=== PATIENT | male | born 1995 ===

== ENCOUNTER 2018-08-16 11:30 | Inpatient (IN) ==
[2018-08-16] MEDS ORDERED: Diphtheria/Tetanus/Pertussis Vaccine Inj 0.5 ML Syringe IM ONE (11:40)
[2018-08-16 11:57] LABS: Baso # (Auto) 0.1 th/mm3 (0.0-0.2); Baso % (Auto) 0.5 % (0.0-2.0); Eos # (Auto) 0.2 th/mm3 (0.0-0.4); Eos % (Auto) 2.1 % (0.0-4.0); Hematocrit 40.7 % (39.0-51.0); Hemoglobin 13.5 gm/dL (13.0-17.0); Lymph # (Auto) 1.9 th/mm3 (1.0-4.8); Lymph % (Auto) 18.7 % (9.0-44.0); Mean Corpuscular HGB Conc 33.1 % (32.0-36.0); Mean Corpuscular Hemoglobin 28.1 pg (27.0-34.0); Mean Corpuscular Volume 85.1 fL (80.0-100.0); Mean Platelet Volume 9.6 fL (7.0-11.0); Mono # (Auto) 0.6 th/mm3 (0.0-0.9); Mono % (Auto) 6.4 % (0.0-8.0); Neut # (Auto) 7.2 th/mm3 (1.8-7.7); Neut % (Auto) 72.3 % (16.0-70.0); Platelet Count 191 th/mm3 (150-450); Red Blood Count 4.79 mil/mm3 (4.50-5.90); Red Cell Distribution Width 14.1 % (11.6-17.2)
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
[2018-08-16] MEDS ORDERED: Morphine Inj 4 MG/ML Vial ONE ×2 (12:06→12:28)
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
[2018-08-16 12:12] LABS: Activated Partial Thrombo Time 25.2 sec (24.3-30.1); Prothrombin Time 10.4 sec (9.8-11.6)
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
[2018-08-16] MEDS ORDERED: Gelatin Size 100 Topical Foam ONE (12:50)
[2018-08-16] MEDS ORDERED: Thrombin Topical Soln 5,000 UNIT Vial TOPICAL ONE (12:50)
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
[2018-08-16] MEDS ORDERED: ceFAZolin 2 GM Premix Inj 2 GM/50 ML PIGGYBACK IV.SIG ONE (13:01)
[2018-08-16] MEDS ORDERED: ceFAZolin 1 GM Premix Inj 1 GM/50 ML FROZ.PIGGY IV.SIG ONE (13:01)
[2018-08-16] MEDS ORDERED: Normosol-R pH 7.4 Inj 2,000 ML IV.CONT ONE (13:25)
[2018-08-16] MEDS ORDERED: Phenylephrine/NS 1000 MCG/10ML Syringe IV.PUSH ONE (13:25)
[2018-08-16] MEDS ORDERED: Succinylcholine Inj 100 MG/5 ML Syringe IV.PUSH ONE (13:25)
[2018-08-16] MEDS ORDERED: Lidocaine PF 1% Inj 5 ML Syringe OTHER ONE (13:25)
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
[2018-08-16] MEDS ORDERED: Propofol Inj 500 MG/50 ML Vial ONE ×5 (13:46→18:28)
[2018-08-16] MEDS ORDERED: Ketamine Inj 500 MG/10 ML Vial ONE (13:46)
[2018-08-16] MEDS ORDERED: Lidocaine 1%/Epinephrine 1:100,000 Inj 30 ML Vial ONE (14:00)
[2018-08-16] MEDS ORDERED: Morphine Sulfate Inj 2 MG/ML Vial IV.PUSH PRN (14:00)
[2018-08-16] MEDS ORDERED: fentaNYL Citrate Inj 250 MCG/5 ML Ampul ONE ×2 (15:42→15:43)
[2018-08-16] MEDS ORDERED: Bisacodyl 10 MG Supp RECTAL PRN (18:02)
[2018-08-16] MEDS ORDERED: Post-op Orders (for Pharmacy) OTHER ONE (18:02)
[2018-08-16] MEDS ORDERED: Naloxone Inj 0.4 MG/ML Vial IV.PUSH PRN (18:02)
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
[2018-08-16] MEDS: fentaNYL 10 mcg/mL Premix Drip 2,500 MCG/250 ML BAG IV.SIG PRN (18:30)
--- NOTE | 2018-08-16 18:37 | P.OP ---
Preoperative Diagnosis: C6/7 fracture dislocation (jumped facet Left C6/7) Postoperative Diagnosis: same Date of procedure: 08/16/18 Procedure: Cervical traction and reduction of fracture with 60 lbs Anterior cervical discectomy at C6/7 and fixation from C5 to T1 Use of operative microscope Use of Iso-C 3D fluoro Precision simplicity plate: C5: 16mm variable, C6: 14mm variable, C7: 14mm fixed, T1: 16mm variable Size 10mm VG2 lordotic allograft at C6/7 Indications: This is a 22 yoM with a C6 complete spinal cord injury and a left C6/7 fracture dislocation. Reduction and fixation are indicated. Description of Operation: Patient was brought to [place] [id number] and the procedure done under general anethesia with neuromonitoring. He was brought to the operating table in a collar and cervical traction was applied through a crown halo with 60lbs. Difficulty visualizing C6/7 due to body habitus required Iso-C. C6/7 was visualized and not reduced. Neuromonitoring with poor baselines prior to traction, stronger in the upper extremities but inconsistent and mostly absent in the lowers, consistent with his exam. Paralytic was given and manual traction applied. Neuromonitoring remained unchanged throughout the case, with perhaps slight improvement in right arm by the end. A physical pop was identified coincident with presumed reduction of the fracture, confirmed by IsoC. Decision made to proceed with anterior fixation given body habitus and difficulty with imaging and reduction by traction. Right anterior neck was prepped and draped in the usual sterile fashion. Incision taken through platysma and an avascular plane dissected to the anterior cervical spine. Fluoroscopy confirmed C4 level and C5 to T1 were then dissected free of longus coli. Clarita retractors used for exposure. Microscope brought into the field. The ALL at C6/7 was opened and obviously disrupted disc encountered. This was removed and endplates prepared. Size 10 VG2 graft was placed and Roby pin distraction was reversed. Size 69mm plate was used at multiple points of fixation given large body habitus, using fixed screws at C7 (14mm), variable screws at T1 (16mm) and C5 (16mm) and C6 14mm variable screws. Fluoroscopy was used for final pictures but difficulty to visualize given body habitus. 7mm flat marlon drain was used after irrigating with gentamicin irrigation and achieving hemostasis with floseal. Platysma closed with interrupted 3-0 Vicryl and monocril used for skin followed by dermabond. Drain secured and patient placed back in collar, taken to ICU in stable condition, traction discontinued. EBL 50cc. Surgeon: Ramiro Baker MD
[2018-08-16] MEDS ORDERED: fentaNYL Citrate Inj 100 MCG/2 ML Ampul ONE (18:40)
--- NOTE | 2018-08-16 18:42 | XR ---
EXAM DATE: 08/16/2018 12:00 AM EDT AGE/SEX: 89 years / Male INDICATIONS: Cervical fusion of C5-T1 done in the operating room. CLINICAL DATA: This is the patient's initial encounter. Patient reports that signs and symptoms have been present for 1 day and indicates a pain score of Nonresponsive. MEDICAL/SURGICAL HISTORY: Non-responsive. Non-responsive. COMPARISON: No prior exams available for comparison. FINDINGS: Only AP views available. There is fusion across the lower cervical and upper thoracic spine. Drain pr esent. Alignment not able to be visualized on the lateral. CONCLUSION: Postoperative fusion identified. Only AP view is present with plate and screw overlying lower cervica l and upper thoracic spine, C5-T1. Electronically signed by: Yakov Pablo MD 08/16/2018 6:41 PM EDT
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
[2018-08-16] MEDS: Sod Chloride 0.9% Inj 1,000 ML IV.CONT SCH ×2 (18:58→22:02)
[2018-08-16] MEDS: Propofol 1000 mg/100 ml Inj 1,000 MG/100 ML BOTTLE IV.CONT PRN ×2 (19:36→22:02)
[2018-08-16] MEDS: Senna/Docusate Sodium 8.6/50 MG Tablet PO SCH (20:44)
[2018-08-16] MEDS ORDERED: Docusate Sodium 100 MG Capsule PO SCH (21:00)
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
[2018-08-17] MEDS: Propofol 1000 mg/100 ml Inj 1,000 MG/100 ML BOTTLE IV.CONT PRN ×4 (00:20→07:49)
[2018-08-17] MEDS: Chlorhexidine Gluconate 2% 1 Pack (2 Cloths) TOPICAL SCH (03:55)
[2018-08-17] MEDS ORDERED: Chlorhexidine Gluconate 2% 1 Pack (2 Cloths) TOPICAL PRN (04:00)
--- NOTE | 2018-08-17 04:12 | XR ---
EXAM DATE: 08/17/2018 6:00 AM EDT AGE/SEX: 22 years / Male INDICATIONS: Shortness of breath CLINICAL DATA: This is the patient's subsequent encounter. Patient reports that signs and symptoms h ave been present for 2 days and indicates a pain score of Nonresponsive. MEDICAL/SURGICAL HISTORY: Non-responsive. Non-responsive. COMPARISON: [facility], CHEST 1V SINGLE AP, 08/16/2018. . FINDINGS: ET tube and NG tube are well placed. The heart size is normal. This increased density at the medial r ight upper lung and at the right base. The left lung is clear. CONCLUSION: Right superior medial and basilar suspected areas of atelectasis or consolidation. Electronically signed by: Romeo Orozco MD 08/17/2018 4:11 AM EDT
[2018-08-17] MEDS: Sod Chloride 0.9% Inj 1,000 ML IV.CONT SCH ×3 (05:15→16:06)
[2018-08-17 05:51] LABS: ABG Base Excess -0.4 mmol/L (-2-2); ABG PCO2 33 mmHg (38-42); ABG PO2 141 mmHg (61-120)
[2018-08-17 05:51] LABS: Baso # (Auto) 0.1 th/mm3 (0.0-0.2); Baso % (Auto) 0.4 % (0.0-2.0); Eos # (Auto) 0.1 th/mm3 (0.0-0.4); Eos % (Auto) 0.7 % (0.0-4.0); Hematocrit 37.3 % (39.0-51.0); Lymph # (Auto) 2.3 th/mm3 (1.0-4.8); Mean Corpuscular HGB Conc 32.1 % (32.0-36.0); Mean Corpuscular Hemoglobin 27.3 pg (27.0-34.0); Mean Corpuscular Volume 84.9 fL (80.0-100.0); Mean Platelet Volume 9.9 fL (7.0-11.0); Mono # (Auto) 1.1 th/mm3 (0.0-0.9); Mono % (Auto) 8.2 % (0.0-8.0); Neut # (Auto) 9.5 th/mm3 (1.8-7.7); Neut % (Auto) 72.7 % (16.0-70.0); Platelet Count 230 th/mm3 (150-450); Red Blood Count 4.39 mil/mm3 (4.50-5.90); Red Cell Distribution Width 14.9 % (11.6-17.2)
[2018-08-17 06:13] LABS: Albumin 3.2 g/dL (3.4-5.0); Anion Gap 6 meq/L (5-15); Aspartate Aminotransferase 27 U/L (15-37); Blood Urea Nitrogen 9 mg/dL (7-18); Calcium 8.1 mg/dL (8.5-10.1); Chloride 113 meq/L (98-107); Glomerular Filtration Rate Greater Than 89 mL/min (>89); Glucose,Random 99 mg/dL (74-106); Potassium 3.5 meq/L (3.5-5.1); Sodium 145 meq/L (136-145)
[2018-08-17] MEDS ORDERED: Sodium Chloride 0.9% 2 ML Flush PRN IV.FLUSH (06:13)
[2018-08-17 06:14] LABS: Alanine Aminotransferase 29 U/L (12-78)
[2018-08-17 06:16] LABS: Alkaline Phosphatase 68 U/L (45-117); Total Protein 6.7 g/dL (6.4-8.2)
[2018-08-17] MEDS: Chlorhexidine 0.12% Oral Kit 15 ML UDC OROPHARYNG SCH ×2 (07:51→20:10)
[2018-08-17] MEDS: Senna/Docusate Sodium 8.6/50 MG Tablet PO SCH ×2 (08:28→20:09)
[2018-08-17] MEDS: Sodium Chloride 0.9% 2 ML Flush BID IV.FLUSH SCH ×2 (08:31→20:10)
[2018-08-17] MEDS ORDERED: Magnesium Sulfate Inj 2 GM in Sodium Chlor 0.9% Inj 96 ML IV.SIG PRN (09:10)
[2018-08-17] MEDS ORDERED: Magnesium Oxide 400 MG Tablet PO PRN (09:10)
[2018-08-17] MEDS ORDERED: Potassium Phosphate 500 MG Soluble Tablet PO PRN ×2 (09:10)
[2018-08-17] MEDS ORDERED: Magnesium Sulfate Inj 4 GM in Sodium Chlor 0.9% Inj 92 ML IV.SIG PRN (09:10)
[2018-08-17] MEDS ORDERED: Sodium Phosphate Inj 30 MMOL in Sodium Chlor 0.9% Inj 250 ML IV.SIG PRN (09:10)
[2018-08-17] MEDS ORDERED: Potassium Chlor 20 mEq Premix 20 MEQ/100 ML PIGGYBACK IV.SIG PRN ×2 (09:10)
[2018-08-17] MEDS ORDERED: Potassium Chloride 25 MEQ Effervescent Tablet PO PRN (09:10)
[2018-08-17] MEDS ORDERED: Potassium Phosphate Inj 30 MMOL in Sodium Chlor 0.9% Inj 250 ML IV.SIG PRN (09:10)
[2018-08-17] MEDS ORDERED: Potassium Chlor 40 mEq Premix 40 MEQ/100 ML PIGGYBACK IV.SIG PRN ×2 (09:10)
[2018-08-17] MEDS: fentaNYL 10 mcg/mL Premix Drip 2,500 MCG/250 ML BAG IV.SIG PRN (09:41)
[2018-08-17] MEDS: Midazolam 50 MG/50 ML Inj 50 MG/50 ML BAG IV.CONT PRN ×3 (09:45→18:56)
--- NOTE | 2018-08-17 11:08 | P.PNNS ---
Subjective Interval history: did well overnight. awake following commands through biceps, weak movement of hands. no sensation below nipples. exam stable Physical Exam Vital signs: Vital Signs 08/16/18 12:00 08/16/18 18:17 08/16/18 18:23 Temperature 98.2 F Pulse Rate 95 H Respiratory Rate 25 H 16 Pulse Oximetry 97 96 99 08/16/18 19:00 08/16/18 19:08 08/16/18 20:00 Temperature 98.2 F 98.1 F Pulse Rate 79 79 Respiratory Rate 16 16 16 Pulse Oximetry 96 95 08/16/18 20:07 08/16/18 23:44 08/17/18 00:00 Temperature 98 F Pulse Rate 64 Respiratory Rate 16 16 16 Pulse Oximetry 95 100 100 08/17/18 03:25 08/17/18 04:00 08/17/18 07:54 Temperature 98.4 F Pulse Rate 67 54 L Respiratory Rate 16 16 16 Pulse Oximetry 100 100 98 08/17/18 10:50 Temperature Pulse Rate Respiratory Rate 20 Pulse Oximetry 99 Intake & Output 08/16/18 08/17/18 08/17/18 18:59 06:59 18:59 Intake Total 2100 / 2100 2460 / 2460 350 / 350 Output Total 800 / 800 3945 / 3945 Balance 1300 / 1300 -1485 / -1485 350 / 350 Weight 205.7 kg 206.1 kg Intake: IV 100 / 100 2400 / 2400 350 / 350 Diprivan 1000 mg/100 ml Inj 1, 400 / 400 100 / 100 000 mg In 100 ml @ 5 MCG/KG/MIN 6.171 mls/hr IV.CONT TITRATE PRN Rx#:[id number] NS Inj 1,000 ML @ 150 mls/hr IV 1999 .CONT .Q6H40M [facility] Rx#:[id number] Ancef 1 GM Premix Inj 1 gm In 50 / 50 50 ml @ 0 mls/hr IV.SIG .STK- MED ONE Rx#:[id number] Ancef 2 GM Premix Inj 2 gm In 50 / 50 50 ml @ 0 mls/hr IV.SIG .STK- [facility] ONE Rx#:[id number] fentaNYL 10 mcg/mL Premix Drip 250 / 250 2,500 mcg In 250 ml @ 50 MCG/HR 5 mls/hr IV.SIG TITRATE PRN Rx #:[id number] Tube Irrigant 60 / 60 Anesthesia Amount 1999 Output: Estimated Blood Loss 50 / 50 Urine Amount (Catheter) 750 / 750 3200 / 3200 1 750 / 750 3200 / 3200 Gastric Drainage 725 / 725 Orogastric Tube 725 / 725 Wound Drainage # 1 Anterior Neck DODIE Drain Other: Weight On Admission 205.7 kg - Urinary Catheter Management 1 Cath placed during this visit: yes Reason for continuing: Hourly intake/output Insertion date: 08/16/18 Insertion time: 14:00 Assessment and Plan - Plan post op CT C-spine showing reduced fracture (good alignment) 22yoM 375lbs with C6 sci from unilateral jumped facet, reduced in OR with traction, then fixed anteriorly ACDF C5-T1 (08/16/18). plan: stay intubated post op due to concern for ascending SCI, maps > 80 x 48h steroids controversial [place] J collar d/c dodie drain tomorrow
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
[2018-08-17 13:13] LABS: ABG Base Excess 0.7 mmol/L (-2-2); ABG PCO2 47 mmHg (38-42); ABG PO2 51 mmHg (61-120)
[2018-08-17] MEDS: Pantoprazole Inj 40 MG Vial IV.PUSH SCH ×2 (13:21→13:22)
[2018-08-17] MEDS: Enoxaparin Inj 40 MG/0.4 ML Syringe SQ SCH ×2 (13:21→20:10)
[2018-08-17] MEDS: Oral Hygiene Kit OROPHARYNG SCH ×2 (13:51→16:06)
[2018-08-17] MEDS: Phenylephrine Inj 40 MG in Dextrose 5% in Water Inj 496 ML IV.CONT PRN ×2 (17:10)
[2018-08-18] MEDS: fentaNYL 10 mcg/mL Premix Drip 2,500 MCG/250 ML BAG IV.SIG PRN ×2 (00:29→12:44)
[2018-08-18] MEDS: Oral Hygiene Kit OROPHARYNG SCH ×4 (00:29→16:55)
[2018-08-18] MEDS: Midazolam 50 MG/50 ML Inj 50 MG/50 ML BAG IV.CONT PRN ×5 (01:45→22:33)
[2018-08-18] MEDS: Sod Chloride 0.9% Inj 1,000 ML IV.CONT SCH ×2 (02:09→08:02)
[2018-08-18] MEDS: Chlorhexidine Gluconate 2% 1 Pack (2 Cloths) TOPICAL SCH (04:46)
[2018-08-18 05:45] LABS: Baso # (Auto) 0.1 th/mm3 (0.0-0.2); Baso % (Auto) 0.5 % (0.0-2.0); Eos # (Auto) 0.3 th/mm3 (0.0-0.4); Eos % (Auto) 2.1 % (0.0-4.0); Hematocrit 32.1 % (39.0-51.0); Hemoglobin 10.7 gm/dL (13.0-17.0); Lymph # (Auto) 1.8 th/mm3 (1.0-4.8); Lymph % (Auto) 13.6 % (9.0-44.0); Mean Corpuscular HGB Conc 33.2 % (32.0-36.0); Mean Corpuscular Hemoglobin 28.4 pg (27.0-34.0); Mean Corpuscular Volume 85.6 fL (80.0-100.0); Mean Platelet Volume 9.3 fL (7.0-11.0); Mono # (Auto) 1.1 th/mm3 (0.0-0.9); Mono % (Auto) 7.9 % (0.0-8.0); Neut # (Auto) 10.2 th/mm3 (1.8-7.7); Neut % (Auto) 75.9 % (16.0-70.0); Platelet Count 161 th/mm3 (150-450); Red Blood Count 3.75 mil/mm3 (4.50-5.90); Red Cell Distribution Width 14.5 % (11.6-17.2); White Blood Count 13.4 th/mm3 (4.0-11.0)
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
[2018-08-18 06:17] LABS: Alanine Aminotransferase 23 U/L (12-78); Albumin 2.6 g/dL (3.4-5.0); Alkaline Phosphatase 67 U/L (45-117); Anion Gap 6 meq/L (5-15); Aspartate Aminotransferase 23 U/L (15-37); Blood Urea Nitrogen 7 mg/dL (7-18); Carbon Dioxide 27.2 meq/L (21.0-32.0); Chloride 112 meq/L (98-107); Glomerular Filtration Rate Greater Than 89 mL/min (>89); Glucose,Random 90 mg/dL (74-106); Potassium 3.8 meq/L (3.5-5.1); Sodium 145 meq/L (136-145); Total Protein 6.1 g/dL (6.4-8.2)
[2018-08-18 06:24] LABS: ABG Base Excess 0.5 mmol/L (-2-2); ABG PCO2 47 mmHg (38-42); ABG PO2 142 mmHg (61-120)
[2018-08-18] MEDS: Phenylephrine Inj 40 MG in Dextrose 5% in Water Inj 496 ML IV.CONT PRN ×2 (07:02)
[2018-08-18] MEDS: Senna/Docusate Sodium 8.6/50 MG Tablet PO SCH ×2 (08:02→20:16)
[2018-08-18] MEDS: Chlorhexidine 0.12% Oral Kit 15 ML UDC OROPHARYNG SCH ×2 (08:02→20:16)
[2018-08-18] MEDS: Sodium Chloride 0.9% 2 ML Flush BID IV.FLUSH SCH ×2 (10:59→20:16)
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
[2018-08-18] MEDS: Enoxaparin Inj 40 MG/0.4 ML Syringe SQ SCH ×2 (11:29→20:16)
--- NOTE | 2018-08-18 11:55 | XR ---
EXAM DATE: 08/18/2018 11:00 AM EDT AGE/SEX: 22 years / Male INDICATIONS: Shortness of breath. CLINICAL DATA: This is the patient's subsequent encounter. Patient reports that signs and symptoms h ave been present for 3 days and indicates a pain score of Nonresponsive. MEDICAL/SURGICAL HISTORY: Non-responsive. . Cervical fusion. COMPARISON: [facility], CHEST 1V SINGLE AP, 08/18/2018. . FINDINGS: 2 AP semierect portable views of the chest were obtained and demonstrate faint visualization of the e ndotracheal tube with the tip at the level of thoracic inlet. The nasogastric tube remains in place. Hazy opacity is again noted in both lungs which appears mildly improved. There is a linear band of op acity in the right lung base characteristic of atelectasis. Both costophrenic angles appear blunted. The heart size is at the upper limits of normal. The patient is status post lower cervical fusion. CONCLUSION: 1. Apparent interval improvement in bilateral alveolar opacity which may represent improving pulmona ry edema. 2. Discoid atelectasis at the right lung base. 3. Apparent blunting of the costophrenic angles which could indicate small effusions. Electronically signed by: Zheng Pérez MD 08/18/2018 11:54 AM EDT
[2018-08-18 12:03] LABS: ABG Base Excess -0.5 mmol/L (-2-2); ABG PCO2 53 mmHg (38-42); ABG PO2 76 mmHg (61-120)
[2018-08-18] MEDS: Pantoprazole Inj 40 MG Vial IV.PUSH SCH (15:09)
--- NOTE | 2018-08-18 15:29 | P.PNNS ---
Subjective Interval history: stable exam. intubated. lung whitening on xray bronched today with positive secretions. Physical Exam Vital signs: Vital Signs 08/17/18 15:44 08/17/18 15:46 08/17/18 16:00 Temperature 98.7 F Pulse Rate 69 84 Respiratory Rate 15 15 15 Pulse Oximetry 99 100 08/17/18 18:00 08/17/18 20:00 08/17/18 20:07 Temperature 99.8 F H Pulse Rate 70 74 77 Respiratory Rate 18 15 Pulse Oximetry 100 100 08/17/18 23:22 08/18/18 00:00 08/18/18 03:07 Temperature 98.4 F Pulse Rate 74 73 Respiratory Rate 14 14 13 Pulse Oximetry 100 100 100 08/18/18 04:00 08/18/18 07:40 08/18/18 08:00 Temperature 98.8 F 98.8 F Pulse Rate 74 84 73 Respiratory Rate 13 19 20 Pulse Oximetry 100 100 98 08/18/18 10:00 08/18/18 11:01 08/18/18 11:25 Temperature Pulse Rate 77 Respiratory Rate 16 Pulse Oximetry 100 100 08/18/18 12:00 08/18/18 15:07 Temperature 98.6 F Pulse Rate 81 86 Respiratory Rate 15 25 H Pulse Oximetry 95 100 Intake & Output 08/17/18 08/18/18 08/18/18 18:59 06:59 18:59 Intake Total 1660 / 1660 1420 / 1420 2427 / 2427 Output Total 1260 / 1260 755 / 755 Balance 400 / 400 665 / 665 2427 / 2427 Weight 207.9 kg Intake: IV 1540 / 1540 1300 / 1300 2427 / 2427 Versed Inj 50 mg In 50 ml @ 2 100 / 100 50 / 50 100 / 100 MG/HR 2 mls/hr IV.CONT TITRATE PRN Rx#:[id number] Neosynephrine Inj 40 MG In D5W 500 / 500 Inj 496 ML @ 40 MCG/MIN 30 mls/ hr IV.CONT TITRATE PRN Rx#: [id number] Diprivan 1000 mg/100 ml Inj 1, 190 / 190 000 mg In 100 ml @ 5 MCG/KG/MIN 6.171 mls/hr IV.CONT TITRATE PRN Rx#:[id number] NS Inj 1,000 ML @ 150 mls/hr IV 1000 / 1000 1000 / 1000 1577 / 1577 .CONT .Q6H40M [facility] Rx#:[id number] fentaNYL 10 mcg/mL Premix Drip 250 / 250 250 / 250 250 / 250 2,500 mcg In 250 ml @ 50 MCG/HR 5 mls/hr IV.SIG TITRATE PRN Rx #:[id number] Tube Irrigant 120 / 120 120 / 120 Output: Urine Amount (Catheter) 750 / 750 700 / 700 1 750 / 750 700 / 700 Gastric Drainage 500 / 500 50 / 50 Orogastric Tube 500 / 500 50 / 50 Wound Drainage 5 / 5 # 1 Anterior Neck DODIE Drain Narrative: CN ii-xii intact motor 5/5 biceps, delt, triceps, 1 wrist extensor, trace finger wiggle. sensation intact down to wrist, patchy hand no sensation below nipple no movement in lower extremities - Urinary Catheter Management 1 Cath placed during this visit: yes Reason for continuing: Hourly intake/output Insertion date: 08/16/18 Insertion time: 14:00 Assessment and Plan - Plan post op CT C-spine showing reduced fracture (good alignment) 22yoM 375lbs with C6 sci from unilateral jumped facet, reduced in OR with traction, then fixed anteriorly ACDF C5-T1 (08/16/18). plan: stay intubated ascending SCI, maps > 80 x 48h abx per bronch today [place] collar d/c dodie drain exam is slightly worse today (sensory level higher in the arm, but this fluctuates)
--- NOTE | 2018-08-18 18:24 | MP ---
cc: Kelly Bryan MD DATE OF OPERATION: 08/18/2018 PREOPERATIVE DIAGNOSIS: C6, C7 fracture, status post fusion, respiratory failure, morbid obesity, bilateral lung opacification and atelectasis. POSTOPERATIVE DIAGNOSIS: C6, C7 fracture, status post fusion, respiratory failure, morbid obesity, bilateral lung opacification and atelectasis. PROCEDURE: Bronchoscopy. SURGEON: Kelly Bryan MD ANESTHESIA: Rocuronium. ESTIMATED BLOOD LOSS: None. DESCRIPTION: The patient is prepared. Then, bronchoscope was inserted through the endotracheal tube. The bifurcation of the trachea is noted and patient has bilaterally thick grayish secretions. Left lung is first suctioned out and Lukens trap is available, so the cultures were sent. The bronchoscope was advanced to the second and third generation arborization of bronchi and massive amounts of mucus material was suctioned out and bronchial trees washed out with saline. Same is repeated with the right side and when satisfactory clearing is obtained, the bronchoscope was withdrawn and the patient was placed on bilevel ventilation, he tolerated the procedure well. Kelly Bryan MD SJ/ct , 03:35 PM , 03:42 PM
[2018-08-19] MEDS: Oral Hygiene Kit OROPHARYNG SCH ×4 (00:26→17:02)
[2018-08-19] MEDS: fentaNYL 10 mcg/mL Premix Drip 2,500 MCG/250 ML BAG IV.SIG PRN ×3 (01:00→18:07)
[2018-08-19] MEDS: Phenylephrine Inj 40 MG in Dextrose 5% in Water Inj 496 ML IV.CONT PRN ×2 (02:00)
[2018-08-19] MEDS: Chlorhexidine Gluconate 2% 1 Pack (2 Cloths) TOPICAL SCH (04:06)
[2018-08-19] MEDS: Midazolam 50 MG/50 ML Inj 50 MG/50 ML BAG IV.CONT PRN ×3 (04:08→20:55)
[2018-08-19 05:38] LABS: Baso # (Auto) 0.1 th/mm3 (0.0-0.2); Baso % (Auto) 0.3 % (0.0-2.0); Eos # (Auto) 0.1 th/mm3 (0.0-0.4); Eos % (Auto) 0.3 % (0.0-4.0); Hematocrit 33.8 % (39.0-51.0); Hemoglobin 11.1 gm/dL (13.0-17.0); Lymph # (Auto) 0.7 th/mm3 (1.0-4.8); Lymph % (Auto) 2.9 % (9.0-44.0); Mean Corpuscular HGB Conc 32.9 % (32.0-36.0); Mean Corpuscular Hemoglobin 28.3 pg (27.0-34.0); Mean Corpuscular Volume 85.8 fL (80.0-100.0); Mean Platelet Volume 9.8 fL (7.0-11.0); Mono # (Auto) 1.3 th/mm3 (0.0-0.9); Mono % (Auto) 5.5 % (0.0-8.0); Neut # (Auto) 22.2 th/mm3 (1.8-7.7); Platelet Count 178 th/mm3 (150-450); Red Blood Count 3.94 mil/mm3 (4.50-5.90); Red Cell Distribution Width 14.7 % (11.6-17.2); White Blood Count 24.4 th/mm3 (4.0-11.0)
[2018-08-19 05:44] LABS: ABG Base Excess 2.6 mmol/L (-2-2); ABG PCO2 63 mmHg (38-42); ABG PO2 67 mmHg (61-120)
[2018-08-19 06:12] LABS: Alanine Aminotransferase 22 U/L (12-78); Albumin 2.7 g/dL (3.4-5.0); Alkaline Phosphatase 73 U/L (45-117); Anion Gap 6 meq/L (5-15); Aspartate Aminotransferase 17 U/L (15-37); Blood Urea Nitrogen 13 mg/dL (7-18); Calcium 8.6 mg/dL (8.5-10.1); Carbon Dioxide 28.5 meq/L (21.0-32.0); Chloride 109 meq/L (98-107); Glomerular Filtration Rate Greater Than 89 mL/min (>89); Glucose,Random 117 mg/dL (74-106); Potassium 4.8 meq/L (3.5-5.1); Sodium 143 meq/L (136-145); Total Protein 7.2 g/dL (6.4-8.2)
--- NOTE | 2018-08-19 07:18 | XR ---
EXAM DATE: 08/19/2018 6:00 AM EDT AGE/SEX: 22 years / Male INDICATIONS: Shortness of breath. CLINICAL DATA: This is the patient's subsequent encounter. Patient reports that signs and symptoms h ave been present for 4 - 6 days and indicates a pain score of Nonresponsive. MEDICAL/SURGICAL HISTORY: None. Fusion, cervical. COMPARISON: [facility], CHEST 1V SINGLE AP, 08/18/2018. . FINDINGS: A single AP view of the chest demonstrates minimal bibasilar densities. Heart enlarged. Endotracheal tube 7 cm above the vasu. Nasogastric tube with tip in stomach. Osseous structures are intact. CONCLUSION: Bibasilar densities. Electronically signed by: Román Velez MD 08/19/2018 7:16 AM EDT
[2018-08-19] MEDS: Chlorhexidine 0.12% Oral Kit 15 ML UDC OROPHARYNG SCH ×2 (07:56→20:57)
[2018-08-19] MEDS: Senna/Docusate Sodium 8.6/50 MG Tablet PO SCH ×2 (08:38→20:56)
[2018-08-19] MEDS: Sodium Chloride 0.9% 2 ML Flush BID IV.FLUSH SCH ×2 (08:39→21:47)
[2018-08-19] MEDS: Enoxaparin Inj 40 MG/0.4 ML Syringe SQ SCH ×2 (09:13→20:56)
[2018-08-19] MEDS ORDERED: Vancomycin Consult Pharmacy OTHER PRN (09:26)
[2018-08-19 09:50] LABS: ABG Base Excess 2.4 mmol/L (-2-2); ABG PCO2 41 mmHg (38-42); ABG PO2 97 mmHg (61-120)
[2018-08-19] MEDS: Piperacil/Tazo 4.5 GM Premix 4.5 GM/100 ML BAG IV.SIG SCH ×2 (09:54→17:45)
[2018-08-19] MEDS ORDERED: Vancomycin Inj 2,500 MG in Sodium Chlor 0.9% Inj 500 ML IV.SIG ONE (11:00)
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
[2018-08-19] MEDS: Pantoprazole Inj 40 MG Vial IV.PUSH SCH (13:48)
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
--- NOTE | 2018-08-19 15:54 | XR ---
EXAM DATE: 08/19/2018 3:00 PM EDT AGE/SEX: 22 years / Male INDICATIONS: Desaturation CLINICAL DATA: This is the patient's subsequent encounter. Patient reports that signs and symptoms h ave been present for 4 - 6 days and indicates a pain score of Nonresponsive. MEDICAL/SURGICAL HISTORY: Non-responsive. Fusion, cervical. COMPARISON: [facility], CHEST 1V SINGLE AP, 08/19/2018. . FINDINGS: Stable ETT and NGT. Interval development of patchy airspace opacities throughout the mid to upper lef t lung zone. Persistent bibasilar airspace consolidation. Cardiomediastinal contours are stable. Marie tom of the exam is unchanged. CONCLUSION: 1. Stable ETT and NGT. 2. Interval development of patchy airspace opacities in the mid to left upper lung zones. 3. Persistent bilateral lower lobe airspace consolidation. Electronically signed by: Chava Lopez MD 08/19/2018 3:53 PM EDT
[2018-08-20] MEDS: Piperacil/Tazo 4.5 GM Premix 4.5 GM/100 ML BAG IV.SIG SCH ×2 (02:09→09:54)
[2018-08-20] MEDS: Vancomycin Inj 2,500 MG in Sodium Chlor 0.9% Inj 500 ML IV.SIG SCH ×2 (02:10→15:33)
[2018-08-20] MEDS: Oral Hygiene Kit OROPHARYNG SCH ×3 (04:20→15:34)
[2018-08-20] MEDS: Chlorhexidine Gluconate 2% 1 Pack (2 Cloths) TOPICAL SCH (04:21)
[2018-08-20 05:49] LABS: Baso % (Auto) 0.2 % (0.0-2.0); Eos # (Auto) 0.3 th/mm3 (0.0-0.4); Eos % (Auto) 1.4 % (0.0-4.0); Hematocrit 29.8 % (39.0-51.0); Hemoglobin 9.7 gm/dL (13.0-17.0); Lymph # (Auto) 1.5 th/mm3 (1.0-4.8); Lymph % (Auto) 7.2 % (9.0-44.0); Mean Corpuscular HGB Conc 32.7 % (32.0-36.0); Mean Corpuscular Hemoglobin 28.1 pg (27.0-34.0); Mean Platelet Volume 10.2 fL (7.0-11.0); Mono # (Auto) 1.3 th/mm3 (0.0-0.9); Mono % (Auto) 6.1 % (0.0-8.0); Neut # (Auto) 17.7 th/mm3 (1.8-7.7); Neut % (Auto) 85.1 % (16.0-70.0); Platelet Count 175 th/mm3 (150-450); Red Blood Count 3.47 mil/mm3 (4.50-5.90); Red Cell Distribution Width 14.5 % (11.6-17.2); White Blood Count 20.8 th/mm3 (4.0-11.0)
[2018-08-20 05:59] LABS: ABG Base Excess 1.8 mmol/L (-2-2); ABG PCO2 44 mmHg (38-42); ABG PO2 96 mmHG (61-120)
--- NOTE | 2018-08-20 06:05 | XR ---
EXAM DATE: 08/20/2018 6:00 AM EDT AGE/SEX: 22 years / Male INDICATIONS: Respiratory failure. CLINICAL DATA: This is the patient's subsequent encounter. Patient reports that signs and symptoms h ave been present for 4 - 6 days and indicates a pain score of Nonresponsive. MEDICAL/SURGICAL HISTORY: None. Fusion, cervical. COMPARISON: [facility], CHEST 1V SINGLE AP, 08/19/2018. . FINDINGS: ET tube and NG tube are well placed. The heart size is within normal limits for this increased densit y at the lower lungs bilaterally being worse on the right. This pattern has worsened. There is an ant erior cervical fusion plate present. CONCLUSION: Bilateral increased density likely related to diffuse consolidation/edema. Some degree of effusions c an be considered bilaterally. Electronically signed by: Romeo Orozco MD 08/20/2018 6:03 AM EDT
[2018-08-20 06:10] LABS: Albumin 2.3 g/dL (3.4-5.0); Anion Gap 6 meq/L (5-15); Aspartate Aminotransferase 16 U/L (15-37); Blood Urea Nitrogen 23 mg/dL (7-18); Calcium 8.3 mg/dL (8.5-10.1); Carbon Dioxide 28.3 meq/L (21.0-32.0); Chloride 111 meq/L (98-107); Glomerular Filtration Rate 79 mL/min (>89); Glucose,Random 117 mg/dL (74-106); Potassium 4.3 meq/L (3.5-5.1); Sodium 145 meq/L (136-145)
[2018-08-20 06:11] LABS: Alanine Aminotransferase 19 U/L (12-78)
[2018-08-20 06:13] LABS: Alkaline Phosphatase 137 U/L (45-117); Total Protein 6.7 g/dL (6.4-8.2)
[2018-08-20 09:43] LABS: Eosinophils 1 % (0-4); Lymphocytes 3 % (9-44); Monocytes 3 % (0-8); Platelet Estimate Normal (Normal); Platelet Morphology Normal (Normal)
[2018-08-20] MEDS: Senna/Docusate Sodium 8.6/50 MG Tablet PO SCH (09:53)
[2018-08-20] MEDS: Chlorhexidine 0.12% Oral Kit 15 ML UDC OROPHARYNG SCH (09:53)
[2018-08-20] MEDS: Enoxaparin Inj 40 MG/0.4 ML Syringe SQ SCH ×2 (09:53→20:53)
[2018-08-20] MEDS: Sodium Chloride 0.9% 2 ML Flush BID IV.FLUSH SCH (09:53)
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
[2018-08-20] MEDS: Midazolam 50 MG/50 ML Inj 50 MG/50 ML BAG IV.CONT PRN (13:20)
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
[2018-08-20] MEDS: Pantoprazole Inj 40 MG Vial IV.PUSH SCH (15:32)
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
[2018-08-20] MEDS: fentaNYL 10 mcg/mL Premix Drip 2,500 MCG/250 ML BAG IV.SIG PRN (18:22)
[2018-08-21] MEDS ORDERED: Pharmacy Ordered Lab Info OTHER ONE (01:45)
[2018-08-21] MEDS: Chlorhexidine 0.12% Oral Kit 15 ML UDC OROPHARYNG SCH ×3 (02:11→22:50)
[2018-08-21] MEDS: Sodium Chloride 0.9% 2 ML Flush BID IV.FLUSH SCH ×3 (02:11→22:50)
[2018-08-21] MEDS: Oral Hygiene Kit OROPHARYNG SCH ×3 (02:11→17:44)
[2018-08-21] MEDS: Senna/Docusate Sodium 8.6/50 MG Tablet PO SCH ×3 (02:11→22:50)
[2018-08-21] MEDS: Midazolam 50 MG/50 ML Inj 50 MG/50 ML BAG IV.CONT PRN ×3 (02:41→15:54)
[2018-08-21] MEDS: Vancomycin Inj 2,500 MG in Sodium Chlor 0.9% Inj 500 ML IV.SIG SCH (04:50)
[2018-08-21 05:18] LABS: Baso % (Auto) 0.2 % (0.0-2.0); Eos # (Auto) 0.3 th/mm3 (0.0-0.4); Eos % (Auto) 1.6 % (0.0-4.0); Hematocrit 28.2 % (39.0-51.0); Hemoglobin 8.8 gm/dL (13.0-17.0); Lymph # (Auto) 1.4 th/mm3 (1.0-4.8); Lymph % (Auto) 7.8 % (9.0-44.0); Mean Corpuscular HGB Conc 31.4 % (32.0-36.0); Mean Corpuscular Hemoglobin 27.4 pg (27.0-34.0); Mean Corpuscular Volume 87.6 fL (80.0-100.0); Mean Platelet Volume 10.1 fL (7.0-11.0); Mono # (Auto) 1.2 th/mm3 (0.0-0.9); Mono % (Auto) 6.6 % (0.0-8.0); Neut # (Auto) 15.1 th/mm3 (1.8-7.7); Neut % (Auto) 83.8 % (16.0-70.0); Platelet Count 178 th/mm3 (150-450); Red Blood Count 3.22 mil/mm3 (4.50-5.90); Red Cell Distribution Width 14.4 % (11.6-17.2); White Blood Count 18.1 th/mm3 (4.0-11.0)
[2018-08-21 05:41] LABS: Calcium 8.6 mg/dL (8.5-10.1); Carbon Dioxide 29.9 meq/L (21.0-32.0); Potassium 4.5 meq/L (3.5-5.1)
[2018-08-21 05:41] LABS: ABG Base Excess 3.6 mmol/L (-2-2); ABG PCO2 43 mmHg (38-42); ABG PO2 94 mmHg (61-120)
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
[2018-08-21] MEDS: Enoxaparin Inj 40 MG/0.4 ML Syringe SQ SCH ×2 (08:47→22:49)
[2018-08-21] MEDS: fentaNYL 10 mcg/mL Premix Drip 2,500 MCG/250 ML BAG IV.SIG PRN ×2 (09:25→20:35)
--- NOTE | 2018-08-21 10:30 | P.PNNS ---
Subjective Interval history: intubated, follows simple commands. Physical Exam Vital signs: Vital Signs 08/20/18 11:00 08/20/18 12:00 08/20/18 13:00 Temperature Pulse Rate 99 H 100 H 102 H Respiratory Rate 26 H 17 24 Blood Pressure 136/66 Pulse Oximetry 95 95 96 08/20/18 14:00 08/20/18 15:00 08/20/18 16:00 Temperature 101.7 F H Pulse Rate 99 H 101 H 100 H Respiratory Rate 30 H 29 H 28 H Blood Pressure 129/61 Pulse Oximetry 99 98 100 08/20/18 16:37 08/20/18 17:00 08/20/18 18:00 Temperature Pulse Rate 97 H 102 H 98 H Respiratory Rate 26 H 23 0 L Blood Pressure Pulse Oximetry 95 97 99 08/20/18 18:50 08/20/18 20:00 08/20/18 20:08 Temperature 99.1 F 99.4 F Pulse Rate 101 H 99 H Respiratory Rate 23 22 Blood Pressure 120/63 Pulse Oximetry 94 L 93 L 08/20/18 22:00 08/21/18 00:00 08/21/18 01:22 Temperature 100 F H Pulse Rate 103 H 101 H Respiratory Rate 20 Blood Pressure 136/88 Pulse Oximetry 98 96 08/21/18 02:00 08/21/18 03:28 08/21/18 04:00 Temperature 101.0 F H Pulse Rate 103 H 100 H 101 H Respiratory Rate 18 19 Blood Pressure 136/66 Pulse Oximetry 08/21/18 04:15 08/21/18 06:00 08/21/18 07:51 Temperature Pulse Rate 99 H 101 H Respiratory Rate 20 22 Blood Pressure Pulse Oximetry 98 95 08/21/18 08:00 Temperature 101.5 F H Pulse Rate 101 H Respiratory Rate Blood Pressure Pulse Oximetry Intake & Output 08/20/18 08/21/18 08/21/18 18:59 06:59 18:59 Intake Total 1864 / 1864 175 / 175 300 / 300 Output Total 1250 / 1250 700 / 700 Balance 614 / 614 -525 / -525 300 / 300 Weight 203.3 kg Intake: IV 950 / 950 175 / 175 300 / 300 Versed Inj 50 mg In 50 ml @ 2 50 / 50 50 / 50 MG/HR 2 mls/hr IV.CONT TITRATE PRN Rx#:[id number] Ofirmev Inj 1,000 mg In 100 ml 100 / 100 @ 400 mls/hr IV.SIG Q6H PRN Rx# :[id number] Zosyn 4.5 GM Premix 4.5 gm In 100 / 100 100 ml @ 200 mls/hr IV.SIG Q8H ANAHI Rx#:[id number] Vancomycin Inj 2,500 MG In NS 500 / 500 25 / 25 Inj 500 ML @ 250 mls/hr IV.SIG Q12H ANAHI Rx#:[id number] Rocephin Inj 2,000 MG In NS Inj 100 / 100 100 ML @ 200 mls/hr IV.SIG Q24H ANAHI Rx#:[id number] fentaNYL 10 mcg/mL Premix Drip 250 / 250 250 / 250 2,500 mcg In 250 ml @ 50 MCG/HR 5 mls/hr IV.SIG TITRATE PRN Rx #:[id number] Tube Feeding 564 / 564 Tube Irrigant 50 / 50 Water Bolus Amount 300 / 300 Output: Urine 700 / 700 Urine Amount (Catheter) 1250 / 1250 1 1250 / 1250 Other: Date of Last Bowel Movement 08/20/18 08/21/18 08/21/18 # Bowel Movements 1 1 Narrative: intubated, opens eyes and intermittently follow simple commands shrugs shoulders, gross flexion left arm and slightly right, no hand movements seen, 0/5 LE wound is healing well, clean and dry pupils equal cervical collar in place no sensation below nipple - Urinary Catheter Management 1 Cath placed during this visit: yes Reason for continuing: Hourly intake/output Insertion date: 08/16/18 Insertion time: 14:00 Assessment and Plan - Plan 22yoM 375lbs with C6 sci from unilateral jumped facet, reduced in OR with traction, then fixed anteriorly ACDF C5-T1 by Dr. Baker (08/16/18) post op CT C-spine showing reduced fracture (good alignment) plan: cont togiak J collar critical care management therapy
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
--- NOTE | 2018-08-21 11:02 | MP ---
cc: Kelly Bryan MD DATE OF OPERATION: 08/19/2018 DATE OF PROCEDURE: 08/19/2018. PREOPERATIVE DIAGNOSES: High inspiratory peak pressures respiratory failure, low quadriplegia. POSTOPERATIVE DIAGNOSES: High inspiratory peak pressures respiratory failure, low quadriplegia, copious secretions into both lungs with bilateral pulmonary collapse. OPERATIVE PROCEDURE: Bronchoscopy and lavage. SURGEON: Dr. Bryan. ANESTHESIA: Rocuronium and propofol. ESTIMATED BLOOD LOSS: None. INDICATIONS FOR PROCEDURE: The patient was prepared in the usual fashion and bronchoscope was introduced through the endotracheal tube into the trachea. In the trachea there are inspissated secretions, which were very thick and these are gradually evacuated. Bifurcation of the bronchi is now noted and both are obstructed with thick copious greenish ingram secretions. The first right main stem bronchus was entered and this was cleaned out down to the third generation aberration of the bronchi. This was washed out with copious amounts of saline. Now, the left side is attended in the same way. When there are more secretions the instrument was withdrawn. In the process, the Lukens trap cultures are obtained. The patient tolerated the procedure well. At the end of the procedure, respiratory parameters improve immediately. MD LASHAE Rust/kaylene , 10:49 AM , 10:55 AM
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
[2018-08-21] MEDS: Pantoprazole Inj 40 MG Vial IV.PUSH SCH (14:31)
[2018-08-21] MEDS: Vancomycin Inj 2,000 MG in Sodium Chlor 0.9% Inj 500 ML IV.SIG SCH (14:35)
[2018-08-22] MEDS: Vancomycin Inj 2,000 MG in Sodium Chlor 0.9% Inj 500 ML IV.SIG SCH (03:19)
[2018-08-22] MEDS: Oral Hygiene Kit OROPHARYNG SCH ×4 (03:23→11:00)
[2018-08-22] MEDS: Chlorhexidine Gluconate 2% 1 Pack (2 Cloths) TOPICAL SCH (03:23)
[2018-08-22 05:30] LABS: ABG Base Excess 3.7 mmol/L (-2-2); ABG PCO2 47 mmHg (38-42); ABG PO2 98 mmHg (61-120)
--- NOTE | 2018-08-22 05:34 | XR ---
EXAM DATE: 08/22/2018 12:00 AM EDT AGE/SEX: 22 years / Male INDICATIONS: Shortness of breath. CLINICAL DATA: This is the patient's subsequent encounter. Patient reports that signs and symptoms h ave been present for 1 week and indicates a pain score of Nonresponsive. MEDICAL/SURGICAL HISTORY: None. None. COMPARISON: [facility] [place], CHEST 1V SINGLE AP, 08/20/2018. . FINDINGS: There appears to be an ET tube projecting over the trachea in the neck. The tip is obscured by an ant erior fusion plate. There is an NG tube seen. The tip is not seen secondary to under exposure at the inferior aspect of the image. There is near total opacification of the left hemithorax. There is silh ouetting of the left heart border. There is patchy alveolar density seen throughout the right lung. CONCLUSION: Diffuse consolidation being much worse on the left. The increased density in the left may be secondar y to left effusion. Electronically signed by: Romeo Orozco MD 08/22/2018 5:33 AM EDT
[2018-08-22] MEDS: fentaNYL 10 mcg/mL Premix Drip 2,500 MCG/250 ML BAG IV.SIG PRN (05:47)
[2018-08-22 05:51] LABS: Baso # (Auto) 0.1 th/mm3 (0.0-0.2); Baso % (Auto) 0.3 % (0.0-2.0); Eos # (Auto) 0.3 th/mm3 (0.0-0.4); Eos % (Auto) 1.9 % (0.0-4.0); Lymph # (Auto) 1.2 th/mm3 (1.0-4.8); Lymph % (Auto) 7.1 % (9.0-44.0); Mean Corpuscular HGB Conc 32.1 % (32.0-36.0); Mean Corpuscular Hemoglobin 27.8 pg (27.0-34.0); Mean Corpuscular Volume 86.7 fL (80.0-100.0); Mean Platelet Volume 9.7 fL (7.0-11.0); Mono # (Auto) 1.5 th/mm3 (0.0-0.9); Mono % (Auto) 8.3 % (0.0-8.0); Neut # (Auto) 14.4 th/mm3 (1.8-7.7); Neut % (Auto) 82.4 % (16.0-70.0); Platelet Count 175 th/mm3 (150-450); Red Blood Count 3.22 mil/mm3 (4.50-5.90); Red Cell Distribution Width 14.8 % (11.6-17.2); White Blood Count 17.5 th/mm3 (4.0-11.0)
[2018-08-22 06:10] LABS: Calcium 8.7 mg/dL (8.5-10.1); Carbon Dioxide 28.8 meq/L (21.0-32.0); Potassium 4.5 meq/L (3.5-5.1)
[2018-08-22] MEDS: Chlorhexidine 0.12% Oral Kit 15 ML UDC OROPHARYNG SCH (08:21)
[2018-08-22] MEDS: Sodium Chloride 0.9% 2 ML Flush BID IV.FLUSH SCH (08:22)
[2018-08-22] MEDS: Senna/Docusate Sodium 8.6/50 MG Tablet PO SCH (08:22)
[2018-08-22] MEDS: Enoxaparin Inj 40 MG/0.4 ML Syringe SQ SCH (09:13)
[2018-08-22] MEDS ORDERED: Aztreonam Inj 2 GM in Sodium Chloride 0.9% Inj 100 ML IV.SIG SCH (10:00)
[2018-08-22 11:07] VITALS: TEMP 99
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
[2018-08-22] MEDS: Midazolam 50 MG/50 ML Inj 50 MG/50 ML BAG IV.CONT PRN (11:57)
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
[2018-08-22] MEDS ORDERED: Atropine Inj 1 MG/10 ML Syringe ONE (12:16)
[2018-08-22 12:34] LABS: ABG Base Excess -2.4 mmol/L (-2-2); ABG PCO2 103 mmHg (38-42); ABG PO2 7 mmHg (61-120)
[2018-08-22 13:02] VITALS: BP 136/66; PULSE 0; RESP 0; O2SAT 97
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
[2018-08-23] MEDS ORDERED: Pharmacy Ordered Lab Info OTHER ONE (01:45)
--- NOTE | 2018-08-23 16:15 | P.DN ---
- Provider Primary care physician: UNKNOWN Consults: 08/16/18 12:03 Consult to Neurosurgery Stat Consulting Provider: Ramiro Baker For STAT consult, spoke directly to:: Samuel Reason for Consultation: Perched facet in cervical spine with paralysis from nipples distally. Notified:: Physician Spoke with:: Dr Baker Date Notified:: 08/16/18 Time Notified:: 12:11 Ordering Provider: ATILIO 08/17/18 06:02 Consult to Rehab Medicine Routine Consulting Provider: Dawna Leyva Reason for Consultation: TBI Notified:: Service Spoke with:: Adam Date Notified:: 08/17/18 Time Notified:: 06:25 Ordering Provider: NIDHI 08/18/18 09:28 Consult to Rehab Medicine Routine Consulting Provider: Dawna Leyva Reason for Consultation: Quadriplegia, cervical fxs Notified:: Office Spoke with:: DUPLICATE Date Notified:: 08/18/18 Time Notified:: 10:47 Comments:: THIS IS A DUPLICATE ORDER Ordering Provider: NIDHI 08/20/18 09:15 Consult to Infectious Diseases Routine Consulting Provider: Ridge Paul Reason for Consultation: Aspiration, leukocytosis Notified:: Service Spoke with:: EARL Date Notified:: 08/20/18 Time Notified:: 10:16 Ordering Provider: NIDHI 08/21/18 11:52 HUB Only Consult Order Routine Consulting Provider: [facility] Reason for Consultation: [facility] REFERRAL - Admitting Diagnosis (1) C6-C7 unilateral jumped facet (2) Acute paraplegia (3) Aspirated gastric contents in lower respiratory tract - Diagnosis at Time of (1) Aspirated gastric contents in lower respiratory tract Diagnosis: Principal (2) C6-C7 unilateral jumped facet Diagnosis: Principal (3) Acute paraplegia Diagnosis: Principal - Date and Time Date of admission: 08/16/18 12:08 - Summary Result Diagrams: 08/22/18 05:30 08/22/18 05:30 Hospital Course: 08/17/2018 Patient is status post neck fusion and decompression for C5-C6 locked facets and contusion of the spinal cord Patient is also morbidly obese making this more difficult as far as his care is concerned Neurologically patient is awake easily arousable sedated on propofol and fentanyl Neurologic activity is consistent with a high paraplegia/low quadriplegia where patient has shoulder movement biceps movement but is waking triceps and hands which are quite weak Respiratory function is preserved but at this point clearly contusions noted only at C6 level but extends at least 2 levels up and down spinal cord so the neurologic symptoms may wax and wane before stabilizing Patient currently on assist control 40% FiO2 with good PO2 FiO2 gradient however copious secretions Tried on CPAP trial which he did not tolerate beyond about 2 hours then started desaturating with RSBI incompatible with extubation We will have to give patient more time Abdomen is soft obese Renal function preserved 08/18/2018 Neurologically patient is unchanged he is easily arousable with sedation vacation and follows commands Gets very agitated easily Motorically remains unchanged with very weak hands and good biceps Hemodynamically stable Bilateral breath sounds on assist control ventilation not tolerating CPAP at all for patient gets agitated and develops high rapid shallow breathing index In addition patient has been desaturating with every movement positioning Chest x-ray reveals opacification of the left lung consistent with heavy secretions and then some in the right lung as well with atelectasis As I stated in my initial note this patient clearly aspirated gastric contents on the scene Patient successfully bronchoscoped with evacuation of massive amounts of tenuous secretions from both lungs Lukens traps obtained and cultures are sent Based on patient's massive body habitus and low quadriplegia/quadriparesis, this patient will benefit from bilevel ventilation Set on bilevel ventilation with high of 30 and low 5 cm H2O and 4 second/1 second timing May adjust little bit and this is going to allow patient for a full pulmonary expansion and improved breathing Based on all of the above patient is not ready to be extubated due to the low quad status as well as lung function Abdomen soft will start on trickle enteral feeds and advance Renal function preserved In summary this is going to be a prolonged process to get patient extubated with this type of neurologic injury and associated lung injury 08/19/2018 Patient is is unchanged neurologically He is partial function of the diaphragm and moving arms mainly flexion with poor extension and poor hand motion This is essentially complete high paraplegia and it is questionable whether patient will be able to come off the ventilator at all Most likely he will with some additional support Hemodynamically patient is stable and Drew-Synephrine has been stopped Bilateral breath sounds remains on assist control ventilation and tolerates periods of CPAP for hour or 2 but then desaturates High RSB I known compatible with separation from the ventilator Lungs are slowly clearing up with residual infiltrates bilaterally and PO2 FiO2 gradient is gradually improving Most likely patient will require tracheostomy Leukocytosis consistent with bilateral pulmonary infiltrates and aspiration pneumonia treated with vancomycin and Zosyn at this time We will consult ID to evaluate the patient once cultures back In summary this patient is a complete high paraplegia and chances of him coming off the ventilator without tracheostomy or low patient will be permanently disabled and will never be able to walk Discussed with the family members who are quite in denial, understandably so 08/20/2018 Patient with low quadriplegia On sedation vacation is awake alert and sedation has been decreased gradually Patient was on small dose of Versed and fentanyl and at this point we will switch patient to fentanyl patch Roxicodone through the tube and mild sedation with Versed Hemodynamically patient remained stable Respiratory function has been problem from get-go due to bilateral aspiration on the scene and copious secretions with repeated partial obstruction of mainstem bronchi. Patient usually presents with increased peak pressures and that has to be bronchoscoped to evacuate very heavy thick secretions Remains on assist control ventilation with periods of pressure regulated ventilatory support due to increased peak pressures as noted above Will alternate between pressure regulated ventilation and possibly assist control ventilation as much as we can until patient receives tracheostomy Due to fresh anterior neck incision from fusion have to postpone tracheostomy until at least end of the week Respiratory cultures Haemophilus influenzae, will adjust antibiotics accordingly 08/21/2018 Patient who is a low quadriplegic For the last few days respiratory function has been a problem Patient currently on high fentanyl which will be decreased and small dose of Versed Patient is on pressure regulated ventilation support which she is tolerating better with improved PO2 FiO2 gradient Either way patient has copious secretions which have to be suctioned out and patient is bronchoscopy every few days We will get tracheostomy in a few days in order to minimize the chance of violating the tissue planes from previous cervical fusion Recurrent fevers and right lower lobe infiltrate on the chest x-ray consistent with atelectasis and possible pneumonia from aspiration Last culture grew Haemophilus influenzae. Patient on appropriate antibiotic coverage and more cultures pending This patient will have prolonged course of recovery and will face difficult obstacles in the future considering his weight and low quadriplegia 08/22/2018 No change in general status Patient remains low quad with some respiratory function and some flexion in the biceps very weak below that level Due to neurologic deficit patient is unable to clear secretions cough effectively and remains on the ventilator Bilateral breath sounds decreased of the left side and chest x-ray reveals complete opacification of the left chest Again patient will need bronchoscopy and evacuation of massive amounts of secretions Eventually patient will require tracheostomy but I am waiting for few days in face of recent neck surgery Long-term prognosis here is very poor and patient will be permanently bedbound for this is a complete cord lesion Abdomen is soft and patient should at some point be able to swallow on his own once removed from the ventilator Renal function normal Patient is having arrangements made for long-term care through the case management This patient is at high risk of future complications related with quadriplegia including recurrent episodes of respiratory failure, deep venous thrombosis and pulmonary embolism and decubiti hence the need for aggressive long-term placement Patient was being prepared for bronchoscopy and bronchial lavage and evacuation of secretions. As equipment was brought into the room patient suddenly became bradycardic and arrested. Code was called and patient was resuscitated with CPR and established principles. Blood pressure returned after about 5 minutes and so that the heart rate only for patient to arrest again. Full code was carried out for over 20 minutes and patient could not be resuscitated and at that point code was called and patient on 08/22 at 1252. Family was notified.
== END 2018-08-22 17:53 | disposition expired ==
LOC: NEPI 11:30 → NEDA 12:08 → N03 18:17
PROVIDERS: ADMIT Surgery; ATTEND Surgery